=== PATIENT | male | born 1980 | race Caucasian/White ===

== ENCOUNTER 2017-07-09 16:09 | Inpatient (IN) | payer BC ==
[2017-07-09 16:48] VITALS: BMI 26.6
--- NOTE | 2017-07-09 16:53 | HP ---
COWS - Scale Resting Pulse: 0= [place] 80 or Below Sweatin=Flushed/Facial Moisture Restless Observation: 3= Extraneous Movement Pupil Size: 2= Moderately Dilated Bone or Joint Aches: 2= Severe Diffuse Aches Runny Nose/ Eye Tearin= Runny Nose/Eyes GI Upset > 30mins: 3= Vomiting/Diarrhea Tremor Observation: 2= Slight Tremor Visible Yawning Observation: 2= >3x During Session Anxiety or Irritability: 2=Irritable/Anxious Goose Flesh Skin: 0=Smooth Skin COWS Score: 20 CIWA Score - CIWA Score Nausea/Vomitin Muscle Tremors: 3 Anxiety: 3 Agitation: 3 Paroxysmal Sweats: 2 Orientation: 0-Oriented Tacttile Disturbances: 2-Mild Itch/Numbness/Burn Auditory Disturbances: 2-Mild Harshness/Frighten Visual Disturbances: 1-Very Mild Sensitivity Headache: 2-Mild CIWA-Ar Total Score: 21 Admission ROS BHS - HPI Chief Complaint: I NEED HELP TO STOP USING HEROIN AND XANAX Allergies/Adverse Reactions: Allergies Allergy/AdvReac Type Severity Reaction Status Date / Time No Known Allergies Allergy Verified 07/09/17 17:10 History of Present Illness: THIS 36 YEARS OLD MALE WITH HEROIN AND XANAX DEPENDENCE,SEEKING DETOX,LAST TREATMENT 02/12 IN [place] TONSILLECTOMY AT AGE OF 18 YEARS SURGERY FOR TORN ROTATOR CUFF LEFT AT AGE OF 18 NICOTINE DEPENDNECE LONGEST PERIOD OF SOBRIETY 5 MONTHS Exam Limitations: No Limitations - Ebola screening Have you traveled outside of the country in the last 21 days: No (N) Have you had contact with anyone from an Ebola affected area: No Do you have a fever: No - Review of Systems Constitutional: Chills, Diaphoresis, Loss of Appetite, Malaise, Night Sweats, Changes in sleep, Weakness EENT: reports: Tearing, Nose Congestion Respiratory: reports: No Symptoms reported Cardiac: reports: Palpitations GI: reports: Diarrhea, Nausea, Vomiting, Abdominal cramping : reports: No Symptoms Reported Musculoskeletal: reports: Back Pain, Joint Pain, Muscle Pain Integumentary: reports: Dryness Neuro: reports: Headache, Tremors Endocrine: reports: No Symptoms Reported Hematology: reports: No Symptoms Reported Psychiatric: reports: No Sypmtoms Reported, Mood/Affect Appropiate, Orientated x3 Patient History - Patient Medical History Hx Anemia: No Hx Asthma: No Hx Chronic Obstructive Pulmonary Disease (COPD): No Hx Cancer: No Hx Cardiac Disorders: No Hx Congestive Heart Failure: No Hx Hypertension: No Hx Hypercholesterolemia: No Hx Pacemaker: No HX Cerebrovascular Accident: No Hx Seizures: No Hx Dementia: No Hx Diabetes: No Hx Gastrointestinal Disorders: No Hx Liver Disease: No Hx Genitourinary Disorders: No Hx Sexually Transmitted Disorders: No Hx Renal Disease (ESRD): No Hx Thyroid Disease: No Hx Human Immunodeficiency Virus (HIV): No (LAST 02/12 NEGATIVE) Hx Hepatitis C: No Hx Depression: No Hx Suicide Attempt: No Hx Bipolar Disorder: No Hx Schizophrenia: No Other Medical History: NO SUICIDAL,NO HOMICIDAL - Patient Surgical History Past Surgical History: No Hx Neurologic Surgery: No Hx Cataract Extraction: No Hx Cardiac Surgery: No Hx Lung Surgery: No Hx Breast Surgery: No Hx Breast Biopsy: No Hx Abdominal Surgery: No Hx Appendectomy: No Hx Cholecystectomy: No Hx Genitourinary Surgery: No Hx Section: No Hx Orthopedic Surgery: Yes (LEFT SHOULDER ROTATOR CUFF LEFT AGE 18) Other Surgical History: TONSILLECTOMY AT AGE OF 18 YEARS Anesthesia Reaction: No - PPD History Previous Implant?: Yes Documented Results: Negative w/o proof Date: 03/28/16 Results: 0 MM PPD to be Administered?: Yes - Smoking Cessation Smoking history: Current every day smoker Have you smoked in the past 12 months: Yes Aproximately how many cigarettes per day: 20 Hx Chewing Tobacco Use: No Initiated information on smoking cessation: Yes 'Breaking Loose' booklet given: 07/09/17 - Substance & Tx. History Hx Substance Use: Yes Substance Use Type: Heroin, Tranquilizers Hx Substance Use Treatment: Yes (02/12 IN [place]) - Substances Abused Heroin Route: Inhalation Frequency: Daily Amount used: 20 TO 30 BAGS Age of first use: 31 Date of Last Use: 07/09/17 Alprazolam (Xanax) Route: Oral Frequency: Daily Amount used: 4 MGS Age of first use: 26 Date of Last Use: 07/07/17 VALIUM Route: Oral Frequency: Daily Amount used: 50 MGS Age of first use: 26 Date of Last Use: 07/08/17 Family Disease History - Family Disease History Family Disease History: Diabetes: Father, Heart Disease: Father, Mother, CA: Brother (lymphoma,), Respiratory: Mother Admission Physical Exam [facility] - Vital Signs Vital Signs: Vital Signs Temperature 98.2 F 07/09/17 16:44 Pulse Rate 70 07/09/17 16:44 Respiratory Rate 18 07/09/17 16:44 Blood Pressure 157/79 07/09/17 16:44 O2 Sat by Pulse Oximetry (%) - Physical General Appearance: Yes: Moderate Distress, Tremorous, Irritable, Sweating, Anxious HEENTM: Yes: Normal ENT Inspection, [place], Pharynx Normal Respiratory: Yes: Lungs Clear, Normal Breath Sounds, No Respiratory Distress Neck: Yes: Within Normal Limits, Supple, Trachea in good position Breast: Yes: Within Normal Limits Cardiology: Yes: Within Normal Limits, Regular Rhythm, Regular Rate, S1, S2 Abdominal: Yes: Within Normal Limits, Normal Bowel Sounds, Non Tender, Flat, Soft, Surgical Scar (S/P APPENDECTOMY) Genitourinary: Yes: Within Normal Limits Back: Yes: Muscle Spasm Musculoskeletal: Yes: Back pain, Muscle Pain Extremities: Yes: Within Normal Limits (SCAR LEFT SHOULDER), Normal Range of Motion, Tremors Neurological: Yes: metal coater operator II-XII NML intact, Fully Oriented, Alert, Motor Strength 5/5 Integumentary: Yes: Dry Lymphatic: Yes: Within Normal Limits - Diagnostic (1) Opioid dependence with withdrawal Current Visit: No Status: Acute (2) Uncomplicated sedative, hypnotic or anxiolytic withdrawal Current Visit: Yes Status: Acute (3) Nicotine dependence Current Visit: No Status: Acute Qualifiers: Nicotine product type: cigarettes Substance use status: uncomplicated Qualified Code(s): F17.210 - Nicotine dependence, cigarettes, uncomplicated (4) History of shoulder surgery Current Visit: Yes Status: Acute (5) Hx of appendectomy Current Visit: Yes Status: Acute Cleared for Admission S - Detox or Rehab S Level of Care: Medically Managed Detox Regimen/Protocol: Methadone/Valium BHS Breath Alcohol Content Breath Alcohol Content: 0
[2017-07-09] MEDS ORDERED: guaiFENesin/D-METHORPHAN HB 10 ML UNIT-DOSE CUPS PO PRN (17:05)
[2017-07-09] MEDS ORDERED: MAGNESIUM CITRATE 300 ML BOTTLE PO PRN (17:05)
[2017-07-09] MEDS ORDERED: ACETAMINOPHEN 325 MG TABLET (FP) PO PRN (17:05)
[2017-07-09] MEDS ORDERED: MENTHOL/PHENOL 1 EACH UD MM PRN (17:05)
[2017-07-09] MEDS ORDERED: MAGNESIUM HYDROX 2400MG/30ML ORAL SUSPENSION 30 ML CUP PO PRN (17:05)
[2017-07-09] MEDS ORDERED: MAG HYDROX/AL HYDROX/SIMETH 30 ML UNIT-DOSE CUP PO PRN (17:05)
[2017-07-09] MEDS ORDERED: P-EPHED 60MG/TRIPROLIDI 2.5MG TABLET PO PRN (17:05)
[2017-07-09] MEDS ORDERED: IBUPROFEN 400 MG TABLET (FP) PO PRN (17:05)
[2017-07-09] MEDS ORDERED: LOPERAMIDE HCL 2 MG CAPSULE PO PRN (17:05)
[2017-07-09] MEDS: NICOTINE 21 MG/24 HOURS TOPICAL PATCH TD SCH (17:40)
[2017-07-09] MEDS: cloNIDine HCL 0.1 MG TABLET PO SCH ×2 (17:43→22:24)
[2017-07-09] MEDS ORDERED: METHADONE HCL 10 MG TABLET (FOR DETOX USE ONLY) PO ONE ×2 (19:00→23:00)
[2017-07-09] MEDS ORDERED: diazePAM 5 MG TABLET PO ONE (19:00)
[2017-07-09] MEDS: diazePAM 5 MG TABLET PO SCH (22:24)
[2017-07-09] MEDS: THIAMINE HCL 100 MG TABLET (FP) PO SCH (22:25)
[2017-07-10] MEDS: diazePAM 5 MG TABLET PO SCH ×3 (05:46→22:41)
[2017-07-10] MEDS ORDERED: METHADONE HCL 10 MG TABLET (FOR DETOX USE ONLY) PO SCH (10:00)
[2017-07-10] MEDS: diazePAM 5 MG TABLET PO PRN ×2 (10:38→17:36)
[2017-07-10] MEDS: cloNIDine HCL 0.1 MG TABLET PO SCH ×2 (10:39→22:41)
[2017-07-10] MEDS: PRENATAL VITAMINS W/ FOLIC ACID TABLET (FP) PO SCH (10:39)
[2017-07-10] MEDS: NICOTINE 21 MG/24 HOURS TOPICAL PATCH TD SCH (10:39)
--- NOTE | 2017-07-10 11:09 | PN ---
[facility] CIWA - CIWA Score Nausea/Vomitin Muscle Tremors: 3 Anxiety: 3 Agitation: 3 Paroxysmal Sweats: 1-Minimal Palms Moist Orientation: 0-Oriented Tacttile Disturbances: 1-Very Mild Itch/Numbness Auditory Disturbances: 1-Very Mild Visual Disturbances: 0-None Headache: 2-Mild CIWA-Ar Total Score: 17 BHS COWS - Scale Resting Pulse: 0= [place] 80 or Below Sweatin= Chills/Flushing Restless Observation: 3= Extraneous Movement Pupil Size: 1= Pupils >than Normal Bone or Joint Aches: 2= Severe Diffuse Aches Runny Nose/ Eye Tearin= Runny Nose/Eyes GI Upset > 30mins: 2= Nausea/Diarrhea Tremor Observation of Outstretched Hands: 2= Slight Tremor Visible Yawning Observation: 1= 1-2x During Session Anxiety or Irritability: 2=Irritable/Anxious Goose Flesh Skin: 0=Smooth Skin COWS Score: 16 S Progress Note (SOAP) Subjective: alert,irritable,anxious,interrupted sleep,pain in the body and back Objective: 07/10/17 11:06 Vital Signs Temperature 98.0 F 07/10/17 10:48 Pulse Rate 61 07/10/17 10:48 Respiratory Rate 16 07/10/17 10:48 Blood Pressure 152/84 07/10/17 10:48 O2 Sat by Pulse Oximetry (%) ekg nsr,normal ecg 07/10/17 11:07 labs pending Assessment: 07/10/17 11:07 withdrawal symptom Plan: continue detox
[2017-07-10 11:24] LABS: MCH 29.7 pg (25.7-33.7); MCHC 33.1 g/dl (32.0-35.9); MEAN CELL VOLUME 89.7 fl (80-96); MEAN PLT VOLUME 7.7 fl (7.5-11.1); PLATELET COUNT 263 K/MM3 (134-434); RDW 13.4 % (11.9-15.9); WHITE BLOOD COUNT 7.3 K/mm3 (4.0-10.0)
[2017-07-10 11:36] LABS: ALBUMIN 3.6 g/dl (3.4-5.0); ANION GAP 9 (8-16); BILIRUBIN,TOTAL 0.6 mg/dL (0.2-1.0); CALCIUM 8.5 mg/dL (8.5-10.1); CO2 28 mmol/L (21-32); CREATININE 1.1 mg/dL (0.7-1.3); GLUCOSE,RANDOM 95 mg/dL (74-106); SGOT/AST 10 U/L (15-37); SGPT/ALT 24 U/L (12-78); TOT PROT 6.3 g/dl (6.4-8.2)
[2017-07-10 11:37] LABS: ALK PHOS 77 U/L (45-117)
[2017-07-10 12:21] LABS: HIV 1 & 2 AB NEGATIVE; HIV 1 AGp24 NEGATIVE
--- NOTE | 2017-07-10 15:40 | EKG ---
Test Reason : Blood Pressure : / mmHG Vent. Rate : 060 BPM Atrial Rate : 060 BPM P-R Int : 132 ms QRS Dur : 096 ms QT Int : 370 ms P-R-T Axes : 066 071 059 degrees QTc Int : 370 ms NORMAL SINUS RHYTHM NONSPECIFIC ST AND T WAVE ABNORMALITY NO PREVIOUS ECGS AVAILABLE BASELINE ARTIFACT REPEAT EKG IF CLINICALLY INDICATED Confirmed by PAT DE LA CRUZ MD ([id number]) on 07/10/2017 3:40:37 PM Referred By: Confirmed By:PAT DE LA CRUZ MD
[2017-07-10] MEDS: THIAMINE HCL 100 MG TABLET (FP) PO SCH (22:41)
[2017-07-11] MEDS: diazePAM 5 MG TABLET PO PRN ×4 (03:43→20:48)
[2017-07-11] MEDS: cloNIDine HCL 0.1 MG TABLET PO SCH ×2 (10:27→22:12)
[2017-07-11] MEDS: METHADONE HCL 5 MG TABLET (FOR DETOX USE ONLY) PO SCH (10:27)
[2017-07-11] MEDS: PRENATAL VITAMINS W/ FOLIC ACID TABLET (FP) PO SCH (10:28)
[2017-07-11] MEDS: diazePAM 5 MG TABLET PO SCH ×2 (10:28→22:12)
--- NOTE | 2017-07-11 10:30 | PN ---
[facility] CIWA - CIWA Score Nausea/Vomitin-No Nausea/No Vomiting Muscle Tremors: 4-Moderate,w/Arms Extend Anxiety: 3 Agitation: 3 Paroxysmal Sweats: 3 Orientation: 0-Oriented Tacttile Disturbances: 0-None Auditory Disturbances: 0-None Visual Disturbances: 0-None Headache: 1-Very Mild CIWA-Ar Total Score: 14 S COWS - Scale Resting Pulse: 0= [place] 80 or Below Sweatin=Flushed/Facial Moisture Restless Observation: 1= Difficult to Sit Still Pupil Size: 0= Normal to Room Light Bone or Joint Aches: 2= Severe Diffuse Aches Runny Nose/ Eye Tearin= Runny Nose/Eyes GI Upset > 30mins: 1= Stomach Cramp Tremor Observation of Outstretched Hands: 2= Slight Tremor Visible Yawning Observation: 2= >3x During Session Anxiety or Irritability: 2=Irritable/Anxious Goose Flesh Skin: 3=Piloerection COWS Score: 17 S Progress Note (SOAP) Subjective: irritable agitation anxiety sweats chills body aches interrupted sleep muscle spasm Objective: 07/11/17 10:29 Vital Signs Temperature 97.7 F 07/11/17 09:46 Pulse Rate 68 07/11/17 09:46 Respiratory Rate 18 07/11/17 09:46 Blood Pressure 144/87 07/11/17 09:46 O2 Sat by Pulse Oximetry (%) Laboratory Tests 07/10/17 07/10/17 07/10/17 07:40 07:40 07:40 WBC 7.3 D RBC 5.16 Hgb 15.3 Hct 46.3 MCV 89.7 MCH 29.7 MCHC 33.1 RDW 13.4 Plt Count 263 MPV 7.7 Sodium 143 Potassium 4.4 Chloride 106 Carbon Dioxide 28 Anion Gap 9 BUN 12 D Creatinine 1.1 Creat Clearance w eGFR > 60 Random Glucose 95 Calcium 8.5 Total Bilirubin 0.6 D AST 10 L D ALT 24 Alkaline Phosphatase 77 Total Protein 6.3 L Albumin 3.6 RPR Titer Nonreactive HIV 1&2 Antibody Screen HIV P24 Antigen 07/10/17 07:40 WBC RBC Hgb Hct MCV MCH MCHC RDW Plt Count MPV Sodium Potassium Chloride Carbon Dioxide Anion Gap BUN Creatinine Creat Clearance w eGFR Random Glucose Calcium Total Bilirubin AST ALT Alkaline Phosphatase Total Protein Albumin RPR Titer HIV 1&2 Antibody Screen Negative HIV P24 Antigen Negative aaox3 ambulating no acute distress Assessment: 07/11/17 10:29 withdrawal sx Plan: continue detox increase fluids flexiril prn ua result pending
[2017-07-11] MEDS: NICOTINE 21 MG/24 HOURS TOPICAL PATCH TD SCH (11:19)
[2017-07-11 14:30] LABS: URINE APPEARANCE CLEAR; URINE BILIRUBIN NEGATIVE (NEGATIVE); URINE BLOOD NEGATIVE (NEGATIVE); URINE COLOR LTYELLOW; URINE GLUCOSE (UA) NEGATIVE (NEGATIVE); URINE KETONE NEGATIVE (NEGATIVE); URINE NITRITE NEGATIVE (NEGATIVE); URINE PROTEIN NEGATIVE (NEGATIVE); URINE UROBILINOGEN NEGATIVE mg/dL (0.2-1.0)
[2017-07-11] MEDS: hydrOXYzine PAMOATE 25 MG CAPSULE (FP) PO PRN (17:00)
[2017-07-11 19:22] LABS: URINE LEUK ESTERASE Negative (NEGATIVE)
[2017-07-11] MEDS: THIAMINE HCL 100 MG TABLET (FP) PO SCH (22:12)
[2017-07-11] MEDS: CYCLOBENZAPRINE HCL 10 MG TABLET (FP) PO PRN (22:12)
[2017-07-12] MEDS: diazePAM 5 MG TABLET PO PRN ×3 (03:57→16:53)
[2017-07-12] MEDS: diazePAM 5 MG TABLET PO SCH ×2 (10:19→22:15)
[2017-07-12] MEDS: METHADONE HCL 5 MG TABLET (FOR DETOX USE ONLY) PO SCH (10:19)
[2017-07-12] MEDS: cloNIDine HCL 0.1 MG TABLET PO SCH ×2 (10:19→22:15)
[2017-07-12] MEDS: CYCLOBENZAPRINE HCL 10 MG TABLET (FP) PO PRN ×2 (10:19→22:17)
[2017-07-12] MEDS: hydrOXYzine PAMOATE 25 MG CAPSULE (FP) PO PRN (10:19)
[2017-07-12] MEDS: PRENATAL VITAMINS W/ FOLIC ACID TABLET (FP) PO SCH (10:19)
[2017-07-12] MEDS: NICOTINE 21 MG/24 HOURS TOPICAL PATCH TD SCH (10:20)
[2017-07-12] MEDS: THIAMINE HCL 100 MG TABLET (FP) PO SCH (22:15)
[2017-07-13] MEDS ORDERED: METHADONE HCL 10 MG TABLET (FOR DETOX USE ONLY) PO SCH (10:00)
[2017-07-13] MEDS ORDERED: diazePAM 5 MG TABLET PO SCH (10:00)
[2017-07-13] MEDS: PRENATAL VITAMINS W/ FOLIC ACID TABLET (FP) PO SCH (10:18)
[2017-07-13] MEDS: NICOTINE 21 MG/24 HOURS TOPICAL PATCH TD SCH (10:18)
[2017-07-13] MEDS: CYCLOBENZAPRINE HCL 10 MG TABLET (FP) PO PRN (10:18)
[2017-07-13] MEDS: hydrOXYzine PAMOATE 25 MG CAPSULE (FP) PO PRN (10:18)
[2017-07-13] MEDS: cloNIDine HCL 0.1 MG TABLET PO SCH (10:18)
[2017-07-13] MEDS ORDERED: cloNIDine HCL 0.1 MG TABLET PO ONE (10:23)
--- NOTE | 2017-07-13 10:26 | PN ---
BHS Progress Note (SOAP) Subjective: irritable agitation anxiety sweats body aches Objective: 07/12/17 10:24 Vital Signs - 24 hr 07/12/17 07/12/17 07/12/17 13:08 17:44 21:41 Temperature 98.4 F 97.7 F 96.3 F L Pulse Rate 85 75 83 Respiratory 16 18 18 Rate Blood Pressure 123/71 124/84 123/74 07/13/17 07/13/17 07/13/17 00:30 03:30 06:26 Temperature 97.1 F L Pulse Rate 50 L Respiratory 18 18 16 Rate Blood Pressure 131/67 07/13/17 10:05 Temperature 97.5 F L Pulse Rate 75 Respiratory 18 Rate Blood Pressure 138/89 aaox3 ambulating no acute distress Assessment: 07/12/17 10:25 withdrawal sx Plan: continue detox increase fluids
--- NOTE | 2017-07-13 10:26 | PN ---
BHS Progress Note (SOAP) Subjective: irritable agitation sweats body aches Objective: 07/13/17 10:33 Vital Signs Temperature 97.5 F L 07/13/17 10:05 Pulse Rate 75 07/13/17 10:05 Respiratory Rate 18 07/13/17 10:05 Blood Pressure 138/89 07/13/17 10:05 O2 Sat by Pulse Oximetry (%) Laboratory Tests 07/10/17 07/10/17 07/10/17 07:40 07:40 07:40 WBC 7.3 D RBC 5.16 Hgb 15.3 Hct 46.3 MCV 89.7 MCH 29.7 MCHC 33.1 RDW 13.4 Plt Count 263 MPV 7.7 Sodium 143 Potassium 4.4 Chloride 106 Carbon Dioxide 28 Anion Gap 9 BUN 12 D Creatinine 1.1 Creat Clearance w eGFR > 60 Random Glucose 95 Calcium 8.5 Total Bilirubin 0.6 D AST 10 L D ALT 24 Alkaline Phosphatase 77 Total Protein 6.3 L Albumin 3.6 Urine Color Urine Appearance Urine pH Ur Specific [place] Urine Protein Urine Glucose (UA) Urine Ketones Urine Blood Urine Nitrite Urine Bilirubin Urine Urobilinogen Ur Leukocyte Esterase RPR Titer Nonreactive HIV 1&2 Antibody Screen HIV P24 Antigen 07/10/17 07/11/17 07:40 11:30 WBC RBC Hgb Hct MCV MCH MCHC RDW Plt Count MPV Sodium Potassium Chloride Carbon Dioxide Anion Gap BUN Creatinine Creat Clearance w eGFR Random Glucose Calcium Total Bilirubin AST ALT Alkaline Phosphatase Total Protein Albumin Urine Color Ltyellow Urine Appearance Clear Urine pH 8.0 D Ur Specific [place] 1.009 Urine Protein Negative Urine Glucose (UA) Negative Urine Ketones Negative Urine Blood Negative Urine Nitrite Negative Urine Bilirubin Negative Urine Urobilinogen Negative Ur Leukocyte Esterase Negative RPR Titer HIV 1&2 Antibody Screen Negative HIV P24 Antigen Negative aaox3 ambulating no acute distress Assessment: 07/13/17 10:33 withdrawal sx Plan: continue detox increase fluids clonidine 0.1mg tid ordered with parameters
[2017-07-13] MEDS ORDERED: cloNIDine HCL 0.1 MG TABLET PO SCH (14:00)
[2017-07-13 18:22] VITALS: BP 121/66; PULSE 71; TEMP 97.2
--- NOTE | 2017-07-13 18:26 | PN ---
S Progress Note Note: called by nurse, patient refusing to stay because of withdrawal sx, will sign out ama, risks of not compelting detox discussed with patient
--- NOTE | 2017-07-13 18:29 | DS ---
[facility] Detox Discharge Summary Admission Date: 07/09/17 Discharge Date: 07/13/17 - History Present History: Cannabis Dependence, Opioid Dependence, Sedative Dependence Additional Comments: patient refusing to complete detox beause of withdrawal sx in spite of symptomatic treatment, signing out AMA, risks of not cmpleing detox discussed with patient by nurse Pertinent Past History: multiple medical comorbidities - Physical Exam Results Vital Signs: Vital Signs Temperature 97.2 F L 07/13/17 18:21 Pulse Rate 71 07/13/17 18:21 Respiratory Rate 16 07/13/17 18:21 Blood Pressure 121/66 07/13/17 18:21 O2 Sat by Pulse Oximetry (%) Laboratory Tests 07/10/17 07/10/17 07/10/17 07:40 07:40 07:40 WBC 7.3 D RBC 5.16 Hgb 15.3 Hct 46.3 MCV 89.7 MCH 29.7 MCHC 33.1 RDW 13.4 Plt Count 263 MPV 7.7 Sodium 143 Potassium 4.4 Chloride 106 Carbon Dioxide 28 Anion Gap 9 BUN 12 D Creatinine 1.1 Creat Clearance w eGFR > 60 Random Glucose 95 Calcium 8.5 Total Bilirubin 0.6 D AST 10 L D ALT 24 Alkaline Phosphatase 77 Total Protein 6.3 L Albumin 3.6 Urine Color Urine Appearance Urine pH Ur Specific [place] Urine Protein Urine Glucose (UA) Urine Ketones Urine Blood Urine Nitrite Urine Bilirubin Urine Urobilinogen Ur Leukocyte Esterase RPR Titer Nonreactive HIV 1&2 Antibody Screen HIV P24 Antigen 07/10/17 07/11/17 07:40 11:30 WBC RBC Hgb Hct MCV MCH MCHC RDW Plt Count MPV Sodium Potassium Chloride Carbon Dioxide Anion Gap BUN Creatinine Creat Clearance w eGFR Random Glucose Calcium Total Bilirubin AST ALT Alkaline Phosphatase Total Protein Albumin Urine Color Ltyellow Urine Appearance Clear Urine pH 8.0 D Ur Specific [place] 1.009 Urine Protein Negative Urine Glucose (UA) Negative Urine Ketones Negative Urine Blood Negative Urine Nitrite Negative Urine Bilirubin Negative Urine Urobilinogen Negative Ur Leukocyte Esterase Negative RPR Titer HIV 1&2 Antibody Screen Negative HIV P24 Antigen Negative Pertinent Admission Physical Exam Findings: withdrawal sx - Treatment Hospital Course: Detox Protocol Followed Patient has Accepted a Rehab Referral to: NO - Medication Discharge Medications: Ambulatory Orders Emtricitabine/Tenofovir (Tdf) [Truvada 200 mg-300 mg Tablet] DAILY 07/09/17 - Diagnosis (1) History of shoulder surgery Current Visit: Yes Status: Acute (2) Hx of appendectomy Current Visit: Yes Status: Acute (3) Alcohol dependence with withdrawal Current Visit: Yes Status: Chronic Qualifiers: Complication of substance-induced condition: uncomplicated Qualified Code(s ): F10.230 - Alcohol dependence with withdrawal, uncomplicated (4) Uncomplicated sedative, hypnotic or anxiolytic withdrawal Current Visit: Yes Status: Chronic (5) Cocaine dependence Current Visit: No Status: Chronic Qualifiers: Substance use status: uncomplicated Qualified Code(s): F14.20 - Cocaine dependence, uncomplicated (6) Opioid dependence with withdrawal Current Visit: No Status: Chronic - AMA Did Patient Leave Against Medical Advice: Yes
[2017-07-14] MEDS ORDERED: METHADONE HCL 5 MG TABLET (FOR DETOX USE ONLY) PO SCH (06:00)
== END 2017-07-13 18:50 | disposition left against medical advice (07) | DRG 894 ==
LOC: YASAS 16:09 → Y6N 17:04
PROVIDERS: ADMIT Internal Medicine; ATTEND Internal Medicine
PROC: HZ2ZZZZ Detoxification Services for Substance Abuse Treatment (ICD-10-PCS; principal; 2017-07-09)
DX: F11.23 Opioid dependence with withdrawal (principal); F14.20 Cocaine dependence, uncomplicated; F13.230 Sedative, hypnotic or anxiolytic dependence with withdrawal, uncomplicated; F10.230 Alcohol dependence with withdrawal, uncomplicated; F17.210 Nicotine dependence, cigarettes, uncomplicated; Z90.89 Acquired absence of other organs; Z98.890 Other specified postprocedural states; Z87.898 Personal history of other specified conditions
CPT/HCPCS: 36415; 80053; 81003; 85027; 86593; 87389; 93005; 93010

== ENCOUNTER 2019-01-18 10:21 | Inpatient (IN) | payer BC | END 2019-01-21 17:07 | disposition left against medical advice (07) | LOC: YASAS 10:21 → Y6N 13:42 ==

== ENCOUNTER 2021-07-15 11:39 | Inpatient (IN) | payer OTHER ==
[2021-07-15] MEDS ORDERED: ONDANSETRON *ODT* 4 MG TABLET SL PRN (11:56)
[2021-07-15] MEDS ORDERED: NICOTINE 10 MG CARTRIDGE (INHALER) IH PRN (11:56)
[2021-07-15] MEDS ORDERED: IBUPROFEN 400 MG TABLET (FP) PO PRN (11:56)
[2021-07-15] MEDS ORDERED: MAGNESIUM CITRATE 300 ML BOTTLE PO PRN (11:56)
[2021-07-15] MEDS ORDERED: MENTHOL/PHENOL 1 EACH UD MM PRN (11:56)
[2021-07-15] MEDS ORDERED: ACETAMINOPHEN 325 MG TABLET (FP) PO PRN ×2 (11:56)
[2021-07-15] MEDS ORDERED: MAG HYDROX/AL HYDROX/SIMETH 30 ML UNIT-DOSE CUP PO PRN (11:56)
[2021-07-15] MEDS ORDERED: methaDONE HCL 10 MG TABLET (FOR DETOX USE ONLY) PO ONE (11:56)
[2021-07-15] MEDS ORDERED: BISMUTH SUBSALICYLATE 262 MG/15 ML BTL PO PRN (11:56)
[2021-07-15] MEDS ORDERED: MAGNESIUM HYDROX 2400MG/30ML ORAL SUSPENSION 30 ML CUP PO PRN (11:56)
[2021-07-15 12:05] VITALS: BMI 23.6
[2021-07-15] MEDS: clonazePAM 0.5 MG ODT TABLETS SL PRN (14:26)
[2021-07-15] MEDS: PRENATAL VITAMINS W/ FOLIC ACID TABLET (FP) PO SCH (14:37)
[2021-07-15] MEDS: NICOTINE 14 MG/24 HOURS TOPICAL PATCH TD SCH (14:37)
[2021-07-15] MEDS: hydrOXYzine PAMOATE 25 MG CAPSULE (FP) PO SCH ×3 (14:38→22:10)
[2021-07-15] MEDS: CLINDAMYCIN HCL 300 MG PO SCH ×2 (17:47→23:31)
[2021-07-15] MEDS: THIAMINE HCL 100 MG TABLET (FP) PO SCH (22:10)
[2021-07-15] MEDS: MELATONIN 5 MG TABLETS PO SCH (22:11)
[2021-07-16] MEDS: hydrOXYzine PAMOATE 25 MG CAPSULE (FP) PO SCH ×6 (05:22→22:51)
[2021-07-16] MEDS ORDERED: methaDONE HCL 10 MG TABLET (FOR DETOX USE ONLY) ONE (09:05)
[2021-07-16] MEDS: cloNIDine HCL 0.1 MG TABLET PO PRN ×2 (10:27→22:53)
[2021-07-16] MEDS: METHOCARBAMOL 500 MG TABLET PO PRN (10:27)
[2021-07-16] MEDS: PRENATAL VITAMINS W/ FOLIC ACID TABLET (FP) PO SCH (10:27)
[2021-07-16] MEDS: CLINDAMYCIN HCL 300 MG PO SCH ×4 (10:29→22:51)
[2021-07-16] MEDS: NICOTINE 14 MG/24 HOURS TOPICAL PATCH TD SCH (10:29)
[2021-07-16 10:58] LABS: HEMATOCRIT 41.8 % (35.4-49); HEMOGLOBIN 13.8 GM/dL (11.7-16.9); MCH 28.5 pg (25.7-33.7); MCHC 33.2 g/dl (32.0-35.9); MEAN CELL VOLUME 85.8 fl (80-96); MEAN PLT VOLUME 7.6 fl (7.5-11.1); PLATELET COUNT 308 10^3/uL (134-434); RBC 4.87 M/mm3 (4.00-5.60); RDW 13.7 % (11.9-15.9); WHITE BLOOD COUNT 9.3 K/mm3 (4.0-10.0)
[2021-07-16 11:41] LABS: CALCIUM 9.2 mg/dL (8.5-10.1)
[2021-07-16 11:42] LABS: ALBUMIN 3.6 g/dl (3.4-5.0)
[2021-07-16 11:45] LABS: CREATININE 0.8 mg/dL (0.55-1.3)
[2021-07-16 11:46] LABS: BILIRUBIN,TOTAL 0.4 mg/dL (0.2-1); TOT PROT 7.6 g/dl (6.4-8.2)
[2021-07-16] MEDS: THIAMINE HCL 100 MG TABLET (FP) PO SCH (22:51)
[2021-07-16] MEDS: clonazePAM 0.5 MG ODT TABLETS SL PRN (22:53)
[2021-07-16] MEDS: MELATONIN 5 MG TABLETS PO SCH (22:56)
[2021-07-17] MEDS: hydrOXYzine PAMOATE 25 MG CAPSULE (FP) PO SCH ×5 (05:12→22:23)
[2021-07-17] MEDS: cloNIDine HCL 0.1 MG TABLET PO PRN (05:12)
[2021-07-17] MEDS ORDERED: methaDONE HCL 10 MG TABLET (FOR DETOX USE ONLY) PO ONE (10:00)
[2021-07-17] MEDS: PRENATAL VITAMINS W/ FOLIC ACID TABLET (FP) PO SCH (11:15)
[2021-07-17] MEDS: clonazePAM 0.5 MG ODT TABLETS SL PRN (11:19)
[2021-07-17] MEDS: NICOTINE 14 MG/24 HOURS TOPICAL PATCH TD SCH (11:20)
[2021-07-17] MEDS: CLINDAMYCIN HCL 300 MG PO SCH ×4 (11:20→22:23)
[2021-07-17] MEDS: MELATONIN 5 MG TABLETS PO SCH (22:23)
[2021-07-17] MEDS: THIAMINE HCL 100 MG TABLET (FP) PO SCH (22:23)
[2021-07-18] MEDS: hydrOXYzine PAMOATE 25 MG CAPSULE (FP) PO SCH ×5 (05:39→22:57)
[2021-07-18] MEDS ORDERED: methaDONE HCL 10 MG TABLET (FOR DETOX USE ONLY) ONE (09:33)
[2021-07-18] MEDS: CLINDAMYCIN HCL 300 MG PO SCH ×4 (10:45→22:56)
[2021-07-18] MEDS: clonazePAM 0.5 MG ODT TABLETS SL PRN ×2 (10:45→22:56)
[2021-07-18] MEDS: METHOCARBAMOL 500 MG TABLET PO PRN (10:46)
[2021-07-18] MEDS: PRENATAL VITAMINS W/ FOLIC ACID TABLET (FP) PO SCH (10:46)
[2021-07-18] MEDS: NICOTINE 14 MG/24 HOURS TOPICAL PATCH TD SCH (10:47)
[2021-07-18] MEDS: THIAMINE HCL 100 MG TABLET (FP) PO SCH (22:56)
[2021-07-18] MEDS: MELATONIN 5 MG TABLETS PO SCH (23:02)
[2021-07-19] MEDS: hydrOXYzine PAMOATE 25 MG CAPSULE (FP) PO SCH ×5 (06:14→23:07)
[2021-07-19] MEDS ORDERED: methaDONE HCL 10 MG TABLET (FOR DETOX USE ONLY) PO ONE (10:00)
[2021-07-19] MEDS: METHOCARBAMOL 500 MG TABLET PO PRN (10:54)
[2021-07-19] MEDS: clonazePAM 0.5 MG ODT TABLETS SL PRN (10:54)
[2021-07-19] MEDS: NICOTINE 14 MG/24 HOURS TOPICAL PATCH TD SCH (10:57)
[2021-07-19] MEDS: PRENATAL VITAMINS W/ FOLIC ACID TABLET (FP) PO SCH (10:57)
[2021-07-19] MEDS: CLINDAMYCIN HCL 300 MG PO SCH ×2 (10:57→14:57)
[2021-07-19] MEDS: MELATONIN 5 MG TABLETS PO SCH (23:06)
[2021-07-19] MEDS: THIAMINE HCL 100 MG TABLET (FP) PO SCH (23:07)
[2021-07-20] MEDS: hydrOXYzine PAMOATE 25 MG CAPSULE (FP) PO SCH (05:36)
[2021-07-20 09:21] VITALS: BP 122/87; PULSE 83; TEMP 98.4
== END 2021-07-20 09:30 | disposition home or self-care (01) | DRG 773 ==
LOC: YASAS 11:39 → Y6N 12:49
PROVIDERS: ADMIT Allergy & Immunology; ATTEND Allergy & Immunology
PROC: HZ2ZZZZ Detoxification Services for Substance Abuse Treatment (ICD-10-PCS; principal; 2021-07-15)
DX: F11.23 Opioid dependence with withdrawal (principal); F14.20 Cocaine dependence, uncomplicated; F12.20 Cannabis dependence, uncomplicated; F17.210 Nicotine dependence, cigarettes, uncomplicated; F19.282 Other psychoactive substance dependence with psychoactive substance-induced sleep disorder; F19.280 Other psychoactive substance dependence with psychoactive substance-induced anxiety disorder; F41.9 Anxiety disorder, unspecified; F90.9 Attention-deficit hyperactivity disorder, unspecified type; K21.9 Gastro-esophageal reflux disease without esophagitis; L03.113 Cellulitis of right upper limb; Z98.890 Other specified postprocedural states; Z88.8 Allergy status to other drugs, medicaments and biological substances
CPT/HCPCS: 36415; 80053; 85027; 86780; 93005; 93010; C9803; J0735; U0003; U0005

== ENCOUNTER 2022-03-26 10:42 | Inpatient (IN) | payer OTHER ==
[2022-03-26 11:34] VITALS: BMI 24.2
[2022-03-26] MEDS ORDERED: MAGNESIUM CITRATE 300 ML BOTTLE PO PRN (12:27)
[2022-03-26] MEDS ORDERED: MAGNESIUM HYDROX 2400MG/30ML ORAL SUSPENSION 30 ML CUP PO PRN (12:27)
[2022-03-26] MEDS ORDERED: methaDONE HCL 10 MG TABLET (FOR DETOX USE ONLY) PO ONE (12:27)
[2022-03-26] MEDS ORDERED: LOPERAMIDE HCL 2 MG CAPSULE PO PRN (12:27)
[2022-03-26] MEDS ORDERED: DICYCLOMINE HCL 10 MG CAPSULE PO PRN (12:27)
[2022-03-26] MEDS ORDERED: BISMUTH SUBSALICYLATE 262 MG/15 ML BTL PO PRN (12:27)
[2022-03-26] MEDS ORDERED: ONDANSETRON *ODT* 4 MG TABLET SL PRN (12:27)
[2022-03-26] MEDS ORDERED: NICOTINE 10 MG CARTRIDGE (INHALER) IH PRN (12:27)
[2022-03-26] MEDS ORDERED: IBUPROFEN 400 MG TABLET (FP) PO PRN (12:27)
[2022-03-26] MEDS ORDERED: IBUPROFEN 600 MG TABLET (FP) PO PRN (12:27)
[2022-03-26] MEDS ORDERED: cloNIDine HCL 0.1 MG TABLET PO PRN (12:27)
[2022-03-26] MEDS ORDERED: MAG HYDROX/AL HYDROX/SIMETH 30 ML UNIT-DOSE CUP PO PRN (12:27)
[2022-03-26] MEDS ORDERED: ACETAMINOPHEN 325 MG TABLET (FP) PO PRN ×2 (12:27)
[2022-03-26] MEDS ORDERED: BENZOCAINE/MENTHOL (CHLORASEPTIC ) LOZENGE MM PRN (12:27)
[2022-03-26] MEDS ORDERED: NALOXONE (NARCAN) HCL 4 MG/0.1 ML SPRAY NS PRN (12:31)
[2022-03-26] MEDS: hydrOXYzine PAMOATE 25 MG CAPSULE (FP) PO SCH ×3 (13:55→23:04)
[2022-03-26] MEDS: diazePAM 5 MG TABLET PO PRN (13:55)
[2022-03-26] MEDS: PRENATAL VITAMINS W/ FOLIC ACID TABLET (FP) PO SCH (14:09)
[2022-03-26] MEDS: NICOTINE 21 MG/24 HOURS TOPICAL PATCH TD SCH (14:09)
[2022-03-26 17:10] LABS: CALCIUM 8.7 mg/dL (8.5-10.1)
[2022-03-26 17:11] LABS: ALBUMIN 3.4 g/dl (3.4-5.0); BLOOD UREA NITROGEN 20.7 mg/dL (7-18)
[2022-03-26 17:14] LABS: CREATININE 1.1 mg/dL (0.55-1.3); HEMATOCRIT 35.7 % (35.4-49); HEMOGLOBIN 11.9 GM/dL (11.7-16.9); MCH 28.5 pg (25.7-33.7); MCHC 33.2 g/dl (32.0-35.9); MEAN CELL VOLUME 85.7 fl (80-96); MEAN PLT VOLUME 7.3 fl (7.5-11.1); PLATELET COUNT 394 10^3/uL (134-434); RBC 4.17 M/mm3 (4.00-5.60); RDW 13.6 % (11.9-15.9); WHITE BLOOD COUNT 8.8 K/mm3 (4.0-10.0)
[2022-03-26 17:15] LABS: BILIRUBIN,TOTAL 0.6 mg/dL (0.2-1); TOT PROT 6.5 g/dl (6.4-8.2)
[2022-03-26] MEDS: MINERAL OIL/PET HY-PHL TOPICAL OINTMENT 454 GM JAR TP SCH (23:04)
[2022-03-26] MEDS: THIAMINE HCL 100 MG TABLET (FP) PO SCH (23:04)
[2022-03-26] MEDS: MELATONIN 5 MG TABLETS PO SCH (23:04)
[2022-03-27] MEDS: diazePAM 5 MG TABLET PO PRN ×4 (02:51→22:18)
[2022-03-27] MEDS: hydrOXYzine PAMOATE 25 MG CAPSULE (FP) PO SCH ×5 (07:21→22:18)
[2022-03-27] MEDS ORDERED: methaDONE HCL 10 MG TABLET (FOR DETOX USE ONLY) ONE (08:55)
[2022-03-27] MEDS: NICOTINE 21 MG/24 HOURS TOPICAL PATCH TD SCH (09:57)
[2022-03-27] MEDS: PRENATAL VITAMINS W/ FOLIC ACID TABLET (FP) PO SCH (09:57)
[2022-03-27] MEDS: MINERAL OIL/PET HY-PHL TOPICAL OINTMENT 454 GM JAR TP SCH ×2 (09:59→23:11)
[2022-03-27] MEDS: MELATONIN 5 MG TABLETS PO SCH (22:18)
[2022-03-27] MEDS: THIAMINE HCL 100 MG TABLET (FP) PO SCH (22:18)
[2022-03-28] MEDS: diazePAM 5 MG TABLET PO PRN ×3 (02:21→21:53)
[2022-03-28] MEDS: hydrOXYzine PAMOATE 25 MG CAPSULE (FP) PO SCH ×5 (06:40→21:52)
[2022-03-28] MEDS ORDERED: methaDONE HCL 10 MG TABLET (FOR DETOX USE ONLY) PO ONE (10:00)
[2022-03-28] MEDS: NICOTINE 21 MG/24 HOURS TOPICAL PATCH TD SCH (10:23)
[2022-03-28] MEDS: PRENATAL VITAMINS W/ FOLIC ACID TABLET (FP) PO SCH (10:23)
[2022-03-28] MEDS: MINERAL OIL/PET HY-PHL TOPICAL OINTMENT 454 GM JAR TP SCH ×2 (10:24→21:55)
[2022-03-28] MEDS: METHOCARBAMOL 500 MG TABLET PO PRN ×2 (10:24→20:45)
[2022-03-28] MEDS: cloNIDine HCL 0.1 MG TABLET PO PRN (20:45)
[2022-03-28] MEDS: MELATONIN 5 MG TABLETS PO SCH (21:52)
[2022-03-28] MEDS: THIAMINE HCL 100 MG TABLET (FP) PO SCH (21:52)
[2022-03-29] MEDS: hydrOXYzine PAMOATE 25 MG CAPSULE (FP) PO SCH ×5 (06:40→22:27)
[2022-03-29] MEDS ORDERED: amLODIPine BESYLATE 10 MG TABLET (FP) PO SCH (10:00)
[2022-03-29] MEDS ORDERED: amLODIPine BESYLATE 5 MG TABLET (FP) PO SCH (10:00)
[2022-03-29] MEDS ORDERED: methaDONE HCL 10 MG TABLET (FOR DETOX USE ONLY) ONE (10:01)
[2022-03-29] MEDS: amLODIPine BESYLATE 10 MG TABLET (FP) PO SCH (10:11)
[2022-03-29] MEDS: PRENATAL VITAMINS W/ FOLIC ACID TABLET (FP) PO SCH (10:11)
[2022-03-29] MEDS: METHOCARBAMOL 500 MG TABLET PO PRN ×2 (10:11→17:41)
[2022-03-29] MEDS: diazePAM 5 MG TABLET PO PRN (10:11)
[2022-03-29] MEDS: MINERAL OIL/PET HY-PHL TOPICAL OINTMENT 454 GM JAR TP SCH ×2 (10:13→22:26)
[2022-03-29] MEDS: NICOTINE 21 MG/24 HOURS TOPICAL PATCH TD SCH (10:13)
[2022-03-29] MEDS: cloNIDine HCL 0.1 MG TABLET PO PRN (17:41)
[2022-03-29] MEDS: MELATONIN 5 MG TABLETS PO SCH (22:27)
[2022-03-29] MEDS: THIAMINE HCL 100 MG TABLET (FP) PO SCH (22:27)
[2022-03-30] MEDS: METHOCARBAMOL 500 MG TABLET PO PRN ×2 (01:12→09:52)
[2022-03-30] MEDS: cloNIDine HCL 0.1 MG TABLET PO PRN ×2 (01:13→17:19)
[2022-03-30] MEDS: hydrOXYzine PAMOATE 25 MG CAPSULE (FP) PO SCH ×5 (06:52→23:27)
[2022-03-30] MEDS: PRENATAL VITAMINS W/ FOLIC ACID TABLET (FP) PO SCH (09:52)
[2022-03-30] MEDS: amLODIPine BESYLATE 10 MG TABLET (FP) PO SCH (09:52)
[2022-03-30] MEDS: NICOTINE 21 MG/24 HOURS TOPICAL PATCH TD SCH (09:58)
[2022-03-30] MEDS ORDERED: methaDONE HCL 10 MG TABLET (FOR DETOX USE ONLY) PO ONE (10:00)
[2022-03-30] MEDS: diazePAM 5 MG TABLET PO PRN ×3 (10:03→18:41)
[2022-03-30] MEDS: MINERAL OIL/PET HY-PHL TOPICAL OINTMENT 454 GM JAR TP SCH ×2 (10:12→23:27)
[2022-03-30 18:55] VITALS: RESP 18
[2022-03-30] MEDS: MELATONIN 5 MG TABLETS PO SCH (23:27)
[2022-03-30] MEDS: THIAMINE HCL 100 MG TABLET (FP) PO SCH (23:27)
[2022-03-31] MEDS: diazePAM 5 MG TABLET PO PRN ×2 (01:04→05:58)
[2022-03-31] MEDS: hydrOXYzine PAMOATE 25 MG CAPSULE (FP) PO SCH ×2 (06:00→10:15)
[2022-03-31] MEDS: PRENATAL VITAMINS W/ FOLIC ACID TABLET (FP) PO SCH (10:14)
[2022-03-31] MEDS: amLODIPine BESYLATE 10 MG TABLET (FP) PO SCH (10:15)
[2022-03-31] MEDS: MINERAL OIL/PET HY-PHL TOPICAL OINTMENT 454 GM JAR TP SCH (10:16)
[2022-03-31] MEDS: NICOTINE 21 MG/24 HOURS TOPICAL PATCH TD SCH (10:16)
[2022-03-31 12:41] VITALS: BP 156/97; PULSE 78; TEMP 96.4
== END 2022-03-31 12:57 | disposition other institution (70) | DRG 773 ==
LOC: YASAS 10:42 → Y3N 13:24
PROVIDERS: ADMIT Allergy & Immunology; ATTEND Surgery
PROC: HZ2ZZZZ Detoxification Services for Substance Abuse Treatment (ICD-10-PCS; principal; 2022-03-26)
DX: F11.23 Opioid dependence with withdrawal (principal); F13.230 Sedative, hypnotic or anxiolytic dependence with withdrawal, uncomplicated; F14.20 Cocaine dependence, uncomplicated; F17.210 Nicotine dependence, cigarettes, uncomplicated; F19.24 Other psychoactive substance dependence with psychoactive substance-induced mood disorder; I10 Essential (primary) hypertension; R79.89 Other specified abnormal findings of blood chemistry; Z88.8 Allergy status to other drugs, medicaments and biological substances; Z56.0 Unemployment, unspecified
CPT/HCPCS: 36415; 71045-TC-FY; 80053; 81003; 85025; 85027; 86780; 87811; 93005; 93010; C9803-CS; J0735; U0003; U0005

== ENCOUNTER 2022-03-31 13:04 | Inpatient (IN) | payer OTHER ==
[2022-03-31] MEDS ORDERED: guaiFENesin 200 MG/10 ML 10 ML UNIT-DOSE CUPS PO PRN (14:50)
[2022-03-31] MEDS ORDERED: MAGNESIUM HYDROX 2400MG/30ML ORAL SUSPENSION 30 ML CUP PO PRN (14:50)
[2022-03-31] MEDS ORDERED: BENZOCAINE/MENTHOL (CHLORASEPTIC ) LOZENGE MM PRN (14:50)
[2022-03-31] MEDS ORDERED: MAG HYDROX/AL HYDROX/SIMETH 30 ML UNIT-DOSE CUP PO PRN (14:50)
[2022-03-31] MEDS ORDERED: NICOTINE 10 MG CARTRIDGE (INHALER) IH PRN (14:50)
[2022-03-31] MEDS ORDERED: P-EPHED 60MG/TRIPROLIDI 2.5MG TABLET PO PRN (14:50)
[2022-03-31] MEDS ORDERED: IBUPROFEN 400 MG TABLET (FP) PO PRN (14:50)
[2022-03-31] MEDS ORDERED: LOPERAMIDE HCL 2 MG CAPSULE PO PRN (14:50)
[2022-03-31] MEDS ORDERED: ACETAMINOPHEN 325 MG TABLET (FP) PO PRN (14:50)
[2022-03-31] MEDS ORDERED: MAGNESIUM CITRATE 300 ML BOTTLE PO PRN (14:50)
[2022-03-31] MEDS ORDERED: hydrOXYzine PAMOATE 25 MG CAPSULE (FP) PO PRN (14:52)
[2022-03-31] MEDS: MELATONIN 5 MG TABLETS PO SCH (21:22)
[2022-03-31] MEDS: THIAMINE HCL 100 MG TABLET (FP) PO SCH (21:22)
[2022-04-01] MEDS: cloNIDine HCL 0.1 MG TABLET PO PRN (06:35)
[2022-04-01] MEDS: NICOTINE 7 MG/24 HOURS TOPICAL PATCH TD SCH (10:01)
[2022-04-01] MEDS: PRENATAL VITAMINS W/ FOLIC ACID TABLET (FP) PO SCH (10:01)
[2022-04-01] MEDS: amLODIPine BESYLATE 10 MG TABLET (FP) PO SCH (10:58)
[2022-04-01] MEDS ORDERED: FAMOTIDINE 20 MG TABLET PO SCH (11:00)
[2022-04-01] MEDS: hydrOXYzine PAMOATE 50 MG CAPSULE (FP) PO PRN (16:32)
[2022-04-01] MEDS: MELATONIN 5 MG TABLETS PO SCH (21:24)
[2022-04-01] MEDS: THIAMINE HCL 100 MG TABLET (FP) PO SCH (21:24)
[2022-04-02] MEDS: NICOTINE 7 MG/24 HOURS TOPICAL PATCH TD SCH (09:33)
[2022-04-02] MEDS: PRENATAL VITAMINS W/ FOLIC ACID TABLET (FP) PO SCH (09:33)
[2022-04-02] MEDS: amLODIPine BESYLATE 10 MG TABLET (FP) PO SCH (09:33)
[2022-04-02] MEDS: hydrOXYzine PAMOATE 50 MG CAPSULE (FP) PO PRN ×2 (09:34→21:30)
[2022-04-02] MEDS: THIAMINE HCL 100 MG TABLET (FP) PO SCH (21:30)
[2022-04-02] MEDS: cloNIDine HCL 0.1 MG TABLET PO PRN (21:30)
[2022-04-02] MEDS: QUEtiapine FUMARATE 100 MG TABLET (FP) PO SCH (21:32)
[2022-04-02] MEDS: GABAPENTIN 100 MG CAPSULE PO SCH (21:32)
[2022-04-02] MEDS ORDERED: GABAPENTIN 250 MG/5 ML ORAL SOLUTION, 470 ML BOTTLE PO SCH (22:00)
[2022-04-03] MEDS: GABAPENTIN 100 MG CAPSULE PO SCH ×3 (06:53→21:12)
[2022-04-03] MEDS: PRENATAL VITAMINS W/ FOLIC ACID TABLET (FP) PO SCH (09:59)
[2022-04-03] MEDS: amLODIPine BESYLATE 10 MG TABLET (FP) PO SCH (09:59)
[2022-04-03] MEDS: NICOTINE 7 MG/24 HOURS TOPICAL PATCH TD SCH (10:00)
[2022-04-03] MEDS: THIAMINE HCL 100 MG TABLET (FP) PO SCH (21:11)
[2022-04-03] MEDS: hydrOXYzine PAMOATE 50 MG CAPSULE (FP) PO PRN (21:12)
[2022-04-03] MEDS: QUEtiapine FUMARATE 100 MG TABLET (FP) PO SCH (21:12)
[2022-04-04] MEDS: GABAPENTIN 100 MG CAPSULE PO SCH ×3 (06:24→21:11)
[2022-04-04] MEDS: NICOTINE 7 MG/24 HOURS TOPICAL PATCH TD SCH (10:11)
[2022-04-04] MEDS: amLODIPine BESYLATE 10 MG TABLET (FP) PO SCH (10:11)
[2022-04-04] MEDS: PRENATAL VITAMINS W/ FOLIC ACID TABLET (FP) PO SCH (10:11)
[2022-04-04] MEDS: cloNIDine HCL 0.1 MG TABLET PO PRN (14:45)
[2022-04-04] MEDS: QUEtiapine FUMARATE 100 MG TABLET (FP) PO SCH (21:11)
[2022-04-04] MEDS: hydrOXYzine PAMOATE 50 MG CAPSULE (FP) PO PRN (21:11)
[2022-04-04] MEDS: THIAMINE HCL 100 MG TABLET (FP) PO SCH (21:11)
[2022-04-05] MEDS: GABAPENTIN 100 MG CAPSULE PO SCH ×3 (06:41→21:05)
[2022-04-05] MEDS: PRENATAL VITAMINS W/ FOLIC ACID TABLET (FP) PO SCH (09:36)
[2022-04-05] MEDS: amLODIPine BESYLATE 10 MG TABLET (FP) PO SCH (09:36)
[2022-04-05] MEDS: NICOTINE 7 MG/24 HOURS TOPICAL PATCH TD SCH (09:36)
[2022-04-05] MEDS: QUEtiapine FUMARATE 100 MG TABLET (FP) PO SCH (21:05)
[2022-04-05] MEDS: hydrOXYzine PAMOATE 50 MG CAPSULE (FP) PO PRN (21:05)
[2022-04-05] MEDS: THIAMINE HCL 100 MG TABLET (FP) PO SCH (21:05)
[2022-04-06] MEDS: GABAPENTIN 100 MG CAPSULE PO SCH ×3 (06:27→14:20)
[2022-04-06 06:40] VITALS: RESP 20; TEMP 98.4
[2022-04-06 09:14] VITALS: BP 154/81; PULSE 107
[2022-04-06] MEDS: PRENATAL VITAMINS W/ FOLIC ACID TABLET (FP) PO SCH (09:43)
[2022-04-06] MEDS: amLODIPine BESYLATE 10 MG TABLET (FP) PO SCH (09:43)
[2022-04-06] MEDS: NICOTINE 7 MG/24 HOURS TOPICAL PATCH TD SCH (09:44)
== END 2022-04-06 14:52 | disposition home or self-care (01) | DRG 772 ==
LOC: YASAS 13:04 → Y3E 13:05
PROVIDERS: ADMIT Allergy & Immunology; ATTEND Family Medicine
PROC: HZ42ZZZ Group Counseling for Substance Abuse Treatment, Cognitive-Behavioral (ICD-10-PCS; principal; 2022-03-31)
DX: F11.20 Opioid dependence, uncomplicated (principal); F13.20 Sedative, hypnotic or anxiolytic dependence, uncomplicated; F14.20 Cocaine dependence, uncomplicated; F12.20 Cannabis dependence, uncomplicated; F17.213 Nicotine dependence, cigarettes, with withdrawal; F19.280 Other psychoactive substance dependence with psychoactive substance-induced anxiety disorder; R19.7 Diarrhea, unspecified; Z56.0 Unemployment, unspecified; Z59.00 Homelessness unspecified
CPT/HCPCS: 87045; 87046; 87186; 87209; J0735